=== PATIENT | female | born 1955 | race Caucasian/White ===

== ENCOUNTER 2022-11-29 06:55 | Inpatient (IN) | payer MEDICAID ==
[~2022-11-29] VITALS: Ht 167.6 cm; Wt 76.4 kg
[2022-11-29] MEDS ORDERED: [UNRECOGNIZED DRUG - OTHER] PO (07:07)
[2022-11-29] MEDS ORDERED: htn PO (07:07)
[2022-11-29] MEDS ORDERED: 0.9% SODIUM CHLORIDE 10 ML SYRINGE IVP PRN ×2 (07:15→09:30)
[2022-11-29] MEDS ORDERED: SODIUM CHLORIDE 0.9% 1,000 ML IV ONE ×2 (07:15→14:45)
[2022-11-29] MEDS ORDERED: ACETAMINOPHEN 1000 MG/ISO-OSM 100 ML IV ONE (07:30)
[2022-11-29] MEDS ORDERED: ONDANSETRON HCL 4 MG/2 ML VIAL IVP ONE (07:30)
[2022-11-29 07:39] LABS: COVID AG,FIA SOURCE NASAL SWAB
[2022-11-29 07:44] LABS: APPEARANCE,URINE HAZY (CLEAR); BILIRUBIN,URINE NEGATIVE (NEGATIVE); COLOR,URINE LIGHT YELLOW (YELLOW); GLUCOSE, URINE (UA) TRACE mg/dL (NEGATIVE); KETONES,URINE NEGATIVE (NEGATIVE); LEUKOCYTE ESTERASE ,URINE LARGE (NEGATIVE); NITRATE,URINE POSITIVE (NEGATIVE); OCCULT BLOOD,URINE LARGE (NEGATIVE); PH,URINE 6.5 (5.0-8.0); PROTEIN,URINE 100-200,SEE CONFIRM mg/dL (NEGATIVE); SPECIFIC GRAVITIY, URINE 1.012 (1.003-1.030); UROBILINOGEN,URINE <=1.0 mg/dL (<=1.0)
[2022-11-29 07:50] LABS: BACTERIA,URINE Many /HPF (None Seen); SULFOSALICYLIC ACID,URINE 2+ (Negative); WBC,URINE 51-100 /HPF (0-5)
[2022-11-29 07:51] LABS: RENAL EPITHELIAL CELLS,URINE Rare /LPF (None Seen); SQUAMOUS EPITHELIAL CELL,UR Moderate /LPF (None Seen)
[2022-11-29 07:52] LABS: BASOPHILS % (AUTO) 0.1 % (0.0-2.0); EOSINOPHILS % (AUTO) 0.3 % (1.0-6.0); HEMATOCRIT 36.4 % (36-46); HEMOGLOBIN 12.5 g/dL (12.0-16.0); LYMPHOCYTES # (AUTO) 0.6 K/uL (1.0-4.8); LYMPHOCYTES % (AUTO) 7.7 % (22.0-44.0); MEAN CORPUSCULAR HEMOGLOBIN 28.2 pg (26.0-34.0); MEAN CORPUSCULAR HGB CONC 34.3 G/dL (31.0-37.0); MEAN CORPUSCULAR VOLUME 82 fL (80-100); MONOCYTES # (AUTO) 0.1 K/uL (0.1-1.0); MONOCYTES % (AUTO) 1.1 % (2.0-9.0); NEUTROPHILS # (AUTO) 6.8 K/uL (1.8-7.7); PLATELET COUNT (AUTO) 189 K/uL (150-450); RED BLOOD CELL COUNT(AUTO) 4.43 MIL/uL (4.00-5.20); RED CELL DISTRIBUTION WIDTH 14.1 % (11.5-14.5); WHITE BLOOD COUNT (AUTO) 7.5 K/uL (4.5-11.0)
[2022-11-29 07:56] LABS: NEUTROPHILS % (AUTO) 90.8 % (40.0-70.0); RBC MORPHOLOGY COMMENT NORMAL RBC MORPH
[2022-11-29] MEDS ORDERED: CefTRIAXone 1 GM/DEXTROSE 50 ML IV ONE (08:00)
[2022-11-29] MEDS ORDERED: SODIUM CHLORIDE 0.9% 1,300 ML IV ONE (08:00)
[2022-11-29 08:02] LABS: ANION GAP 14 mmol/L (8-16); CALCIUM, TOTAL 8.8 mg/dL (8.8-10.5); CARBON DIOXIDE 23 mmol/L (22-29); CHLORIDE 102 mmol/L (98-107); CREATININE 1.26 mg/dL (0.60-1.30); GLOMERULAR FILTR. RATE CALC 43 mL/min (>60); GLUCOSE,RANDOM 204 mg/dL (70-110); POTASSIUM 3.9 mmol/L (3.5-5.1); SODIUM SERUM 139 mmol/L (136-145); UREA NITROGEN, BLOOD 19 mg/dL (7-18)
[2022-11-29 08:03] LABS: SARS-COV2 (COVID) ANTIGEN,FIA Negative (Negative)
[2022-11-29 08:04] LABS: INFLUENZA TYPE A NEGATIVE FOR TYPE A (NEGATIVE); INFLUENZA TYPE B NEGATIVE FOR TYPE B (NEGATIVE); INR 1.1 (0.9-1.1); PROTHROMBIN TIME 11.4 SEC (9.4-11.6)
[2022-11-29 08:10] LABS: B-TYPE NATRIURETIC PEPTIDE 26 pg/mL (0-100)
[2022-11-29 08:16] LABS: LACTIC ACID 2.9 mmol/L (0.4-2.0)
[2022-11-29 08:17] LABS: ALANINE AMINOTRANSFERASE 19 U/L (12-78); ALBUMIN 3.4 g/dL (3.4-5.0); ALKALINE PHOSPHATASE 119 U/L (46-116); ASPARTATE AMINOTRANSFERASE 14 U/L (15-37); BILIRUBIN,TOTAL 0.8 mg/dL (0.1-1.0); CREATINE KINASE, TOTAL ONLY 68 U/L (26-192)
[2022-11-29 08:32] LABS: TROPONIN I-HIGH SENSITIVITY 11 ng/L (<51)
[2022-11-29] MEDS ORDERED: ONDANSETRON HCL 4 MG/2 ML VIAL IVP PRN ×2 (09:30→14:45)
[2022-11-29] MEDS ORDERED: ACETAMINOPHEN 325 MG TABLET PO PRN (09:30)
[2022-11-29] MEDS ORDERED: HydrALAZINE HCL 20 MG/ML VIAL IVP ONE (12:45)
[2022-11-29] MEDS ORDERED: ZOLPIDEM TARTRATE 5 MG TABLET PO PRN (14:45)
[2022-11-29] MEDS ORDERED: MAGNESIUM HYDROXIDE SUSPENSION 30 ML UDCUP PO PRN (14:45)
[2022-11-29] MEDS ORDERED: DEXTROSE 50%-WATER 25 GM/50 ML SYRINGE IVP PRN (14:45)
[2022-11-29] MEDS ORDERED: BISACODYL 10 MG RECTAL RECTAL SUPPOSITORY PR PRN (14:45)
[2022-11-29] MEDS ORDERED: HydrALAZINE HCL 20 MG/ML VIAL IVP PRN (14:45)
[2022-11-29 15:27] VITALS: BP 110/65; PULSE 85; RESP 18; TEMP 98.1
[2022-11-29] MEDS: MORPHINE SULFATE 2 MG/ML SYRINGE IVP PRN (17:28)
[2022-11-29] MEDS: HEPARIN SODIUM,PORCINE 5,000 UNITS/ML VIAL SQ SCH (17:28)
[2022-11-29] MEDS: DOCUSATE SODIUM 100 MG CAPSULE PO SCH (19:58)
[2022-11-29] MEDS: ACETAMINOPHEN 325 MG TABLET PO PRN (19:58)
[2022-11-29 20:30] VITALS: BP 129/71; PULSE 105; RESP 20; TEMP 100.3
[2022-11-29] MEDS: INSULIN LISPRO 100 UNITS/ML SQ PRN (21:12)
[2022-11-29 22:01] LABS: GLUCOMETER DEV NAME(LOC) 6N.2B; GLUCOSE,POINT OF CARE 201 MG/DL (70-110)
[2022-11-29 22:06] LABS: GLUCOMETER DEV NAME(LOC) 4E.2; GLUCOSE,POINT OF CARE 187 MG/DL (70-110)
[2022-11-30] MEDS: HEPARIN SODIUM,PORCINE 5,000 UNITS/ML VIAL SQ SCH ×4 (00:15→23:57)
[2022-11-30 00:20] VITALS: TEMP 99
[2022-11-30 05:03] VITALS: BP 116/70; PULSE 90; RESP 20; TEMP 98.8
[2022-11-30] MEDS: HYDROCODONE/ACETAMINOPHEN 5-325 MG TABLET PO PRN ×2 (05:08→20:28)
[2022-11-30 06:53] LABS: LYMPHOCYTES # (AUTO) 1.1 K/uL (1.0-4.8); MONOCYTES # (AUTO) 0.7 K/uL (0.1-1.0); MONOCYTES % (AUTO) 4.1 % (2.0-9.0)
[2022-11-30 07:05] LABS: ALBUMIN 2.4 g/dL (3.4-5.0); BILIRUBIN,TOTAL 0.4 mg/dL (0.1-1.0); CREATININE 1.42 mg/dL (0.60-1.30); POTASSIUM 3.8 mmol/L (3.5-5.1); TOTAL PROTEIN, SERUM 5.6 g/dL (6.4-8.2)
[2022-11-30 07:06] LABS: GLUCOMETER DEV NAME(LOC) 6N.2B; GLUCOSE,POINT OF CARE 147 MG/DL (70-110)
[2022-11-30 07:36] LABS: BASOPHILS % (AUTO) 0.3 % (0.0-2.0); EOSINOPHILS % (AUTO) 0.6 % (1.0-6.0); HEMATOCRIT 28.6 % (36-46); HEMOGLOBIN 9.7 g/dL (12.0-16.0); LYMPHOCYTES % (AUTO) 6.5 % (22.0-44.0); MEAN CORPUSCULAR HEMOGLOBIN 28.3 pg (26.0-34.0); MEAN CORPUSCULAR VOLUME 83 fL (80-100); NEUTROPHILS # (AUTO) 14.4 K/uL (1.8-7.7); PLATELET COUNT (AUTO) 133 K/uL (150-450); RED BLOOD CELL COUNT(AUTO) 3.43 MIL/uL (4.00-5.20); RED CELL DISTRIBUTION WIDTH 14.6 % (11.5-14.5)
[2022-11-30 07:38] LABS: NEUTROPHILS % (AUTO) 88.5 % (40.0-70.0); WHITE BLOOD COUNT (AUTO) 16.2 K/uL (4.5-11.0)
[2022-11-30] MEDS: DOCUSATE SODIUM 100 MG CAPSULE PO SCH ×2 (08:58→20:28)
[2022-11-30] MEDS ORDERED: CefTRIAXone 1 GM/DEXTROSE 50 ML IV SCH (09:00)
[2022-11-30] MEDS: PANTOPRAZOLE SODIUM 40 MG DR TABLET PO SCH (09:06)
[2022-11-30] MEDS: MORPHINE SULFATE 2 MG/ML SYRINGE IVP PRN (11:44)
[2022-11-30] MEDS ORDERED: DEXTROSE 50%-WATER 25 GM/50 ML SYRINGE IVP PRN (12:15)
[2022-11-30] MEDS ORDERED: INSULIN LISPRO 100 UNITS/ML SQ PRN (12:15)
[2022-11-30] MEDS: SODIUM CHLORIDE 0.9% 1,000 ML IV SCH (13:32)
[2022-11-30] MEDS: PIPERACILLIN/TAZO 3.375 GM/D5W 50 ML IV SCH ×2 (13:54→20:33)
[2022-11-30] MEDS ORDERED: IOHEXOL 9 MG/ML 500 ML BOTTLE ONE (13:56)
[2022-11-30 13:57] LABS: GLUCOMETER DEV NAME(LOC) 6S.1B; GLUCOSE,POINT OF CARE 242 MG/DL (70-110)
[2022-11-30 16:20] VITALS: BP 139/74; PULSE 96; RESP 20; TEMP 101.7
[2022-11-30] MEDS: ACETAMINOPHEN 325 MG TABLET PO PRN (16:53)
[2022-11-30] MEDS: INSULIN LISPRO 100 UNITS/ML SQ PRN ×2 (17:29→20:29)
[2022-11-30 20:08] VITALS: BP 129/73; PULSE 84; RESP 18; TEMP 100.1
[2022-11-30 20:11] LABS: GLUCOMETER DEV NAME(LOC) 4E.2; GLUCOSE,POINT OF CARE 144 MG/DL (70-110)
[2022-11-30 22:46] LABS: GLUCOMETER DEV NAME(LOC) 4E.2; GLUCOSE,POINT OF CARE 197 MG/DL (70-110)
[2022-12-01] MEDS: HYDROCODONE/ACETAMINOPHEN 5-325 MG TABLET PO PRN ×4 (00:02→20:34)
[2022-12-01] MEDS: PIPERACILLIN/TAZO 3.375 GM/D5W 50 ML IV SCH ×4 (02:05→20:34)
[2022-12-01 04:14] VITALS: BP 134/80; PULSE 83; RESP 17; TEMP 99.6
[2022-12-01] MEDS: SODIUM CHLORIDE 0.9% 1,000 ML IV SCH ×2 (04:17→16:01)
[2022-12-01] MEDS: INSULIN LISPRO 100 UNITS/ML SQ PRN ×2 (05:50→18:02)
[2022-12-01 06:56] LABS: BASOPHILS % (AUTO) 0.3 % (0.0-2.0); EOSINOPHILS % (AUTO) 1.2 % (1.0-6.0); HEMATOCRIT 26.2 % (36-46); HEMOGLOBIN 8.8 g/dL (12.0-16.0); LYMPHOCYTES % (AUTO) 9.3 % (22.0-44.0); MEAN CORPUSCULAR HEMOGLOBIN 28.2 pg (26.0-34.0); MEAN CORPUSCULAR HGB CONC 33.7 G/dL (31.0-37.0); MEAN CORPUSCULAR VOLUME 84 fL (80-100); MONOCYTES # (AUTO) 0.5 K/uL (0.1-1.0); MONOCYTES % (AUTO) 4.7 % (2.0-9.0); NEUTROPHILS # (AUTO) 9.5 K/uL (1.8-7.7); NEUTROPHILS % (AUTO) 84.5 % (40.0-70.0); PLATELET COUNT (AUTO) 128 K/uL (150-450); RED BLOOD CELL COUNT(AUTO) 3.13 MIL/uL (4.00-5.20); RED CELL DISTRIBUTION WIDTH 14.4 % (11.5-14.5); WHITE BLOOD COUNT (AUTO) 11.2 K/uL (4.5-11.0)
[2022-12-01 07:06] LABS: CALCIUM, TOTAL 8.1 mg/dL (8.8-10.5); CREATININE 1.28 mg/dL (0.60-1.30); POTASSIUM 3.8 mmol/L (3.5-5.1)
[2022-12-01 07:46] LABS: GLUCOMETER DEV NAME(LOC) 6N.2B; GLUCOSE,POINT OF CARE 141 MG/DL (70-110)
[2022-12-01] MEDS: PANTOPRAZOLE SODIUM 40 MG DR TABLET PO SCH (08:02)
[2022-12-01] MEDS: HEPARIN SODIUM,PORCINE 5,000 UNITS/ML VIAL SQ SCH ×3 (08:02→23:28)
[2022-12-01] MEDS: DOCUSATE SODIUM 100 MG CAPSULE PO SCH ×2 (08:02→20:36)
[2022-12-01 08:33] VITALS: BP 141/76; PULSE 78; RESP 20; TEMP 99.1
[2022-12-01 14:16] LABS: GLUCOMETER DEV NAME(LOC) 4E.2; GLUCOSE,POINT OF CARE 132 MG/DL (70-110)
[2022-12-01] MEDS: MORPHINE SULFATE 2 MG/ML SYRINGE IVP PRN (18:07)
[2022-12-01 18:08] VITALS: BP 138/79; PULSE 77; RESP 20; TEMP 98.4
[2022-12-01 19:36] LABS: GLUCOMETER DEV NAME(LOC) 4E.2; GLUCOSE,POINT OF CARE 172 MG/DL (70-110)
[2022-12-01 20:10] VITALS: BP 166/90; PULSE 84; RESP 20; TEMP 99.2
[2022-12-01 23:36] LABS: GLUCOMETER DEV NAME(LOC) 6S.1B; GLUCOSE,POINT OF CARE 123 MG/DL (70-110)
[2022-12-02] VITALS (8 sets, daily range): BP systolic 145–192; BP diastolic 80–95; PULSE 70–78; RESP 18–20; TEMP 98.2–98.8
[2022-12-02] MEDS: PIPERACILLIN/TAZO 3.375 GM/D5W 50 ML IV SCH ×4 (01:19→20:47)
[2022-12-02] MEDS: INSULIN LISPRO 100 UNITS/ML SQ PRN ×3 (05:55→17:54)
[2022-12-02] MEDS: HYDROCODONE/ACETAMINOPHEN 5-325 MG TABLET PO PRN ×2 (05:59→16:33)
[2022-12-02 07:27] LABS: BASOPHILS % (AUTO) 0.5 % (0.0-2.0); EOSINOPHILS % (AUTO) 1.6 % (1.0-6.0); HEMATOCRIT 28.1 % (36-46); HEMOGLOBIN 9.7 g/dL (12.0-16.0); LYMPHOCYTES # (AUTO) 1.2 K/uL (1.0-4.8); LYMPHOCYTES % (AUTO) 15.1 % (22.0-44.0); MEAN CORPUSCULAR HEMOGLOBIN 28.4 pg (26.0-34.0); MEAN CORPUSCULAR HGB CONC 34.4 G/dL (31.0-37.0); MEAN CORPUSCULAR VOLUME 83 fL (80-100); MONOCYTES # (AUTO) 0.5 K/uL (0.1-1.0); NEUTROPHILS # (AUTO) 6.2 K/uL (1.8-7.7); NEUTROPHILS % (AUTO) 76.8 % (40.0-70.0); PLATELET COUNT (AUTO) 158 K/uL (150-450)
[2022-12-02 07:40] LABS: CALCIUM, TOTAL 8.8 mg/dL (8.8-10.5); CREATININE 1.14 mg/dL (0.60-1.30); POTASSIUM 3.8 mmol/L (3.5-5.1)
[2022-12-02] MEDS: PANTOPRAZOLE SODIUM 40 MG DR TABLET PO SCH (08:01)
[2022-12-02] MEDS: HEPARIN SODIUM,PORCINE 5,000 UNITS/ML VIAL SQ SCH ×2 (08:01→15:47)
[2022-12-02] MEDS: DOCUSATE SODIUM 100 MG CAPSULE PO SCH ×2 (08:01→21:00)
[2022-12-02] MEDS: SODIUM CHLORIDE 0.9% 1,000 ML IV SCH ×2 (08:01→17:55)
[2022-12-02] MEDS ORDERED: DiphenhydrAMINE HCL 25 MG CAPSULE PO PRN (10:00)
[2022-12-02] MEDS ORDERED: PredniSONE 20 MG TABLET PO SCH (10:00)
[2022-12-02 15:06] LABS: GLUCOMETER DEV NAME(LOC) 4E.2; GLUCOSE,POINT OF CARE 163 MG/DL (70-110)
[2022-12-02 15:06] LABS: GLUCOMETER DEV NAME(LOC) 6N.2B; GLUCOSE,POINT OF CARE 147 MG/DL (70-110)
[2022-12-02 18:21] LABS: GLUCOMETER DEV NAME(LOC) 4E.2; GLUCOSE,POINT OF CARE 204 MG/DL (70-110)
[2022-12-02] MEDS: METOPROLOL SUCCINATE 25 MG ER TABLET PO SCH (22:19)
[2022-12-02] MEDS: AmLODIPine BESYLATE 10 MG TABLET PO SCH (22:19)
[2022-12-02] MEDS: LOSARTAN POTASSIUM 50 MG TABLET PO SCH (22:21)
[2022-12-03 01:16] LABS: GLUCOMETER DEV NAME(LOC) 6N.2B; GLUCOSE,POINT OF CARE 261 MG/DL (70-110)
[2022-12-03] MEDS: PIPERACILLIN/TAZO 3.375 GM/D5W 50 ML IV SCH ×3 (02:01→14:18)
[2022-12-03] MEDS: HEPARIN SODIUM,PORCINE 5,000 UNITS/ML VIAL SQ SCH ×4 (02:08→23:59)
[2022-12-03 03:47] VITALS: BP 157/75; PULSE 65; RESP 20; TEMP 98.8
[2022-12-03 06:46] LABS: GLUCOMETER DEV NAME(LOC) 6N.2B; GLUCOSE,POINT OF CARE 128 MG/DL (70-110)
[2022-12-03] MEDS: SODIUM CHLORIDE 0.9% 1,000 ML IV SCH ×2 (08:39→23:17)
[2022-12-03] MEDS: AmLODIPine BESYLATE 10 MG TABLET PO SCH (08:40)
[2022-12-03] MEDS: DOCUSATE SODIUM 100 MG CAPSULE PO SCH ×2 (08:41→20:16)
[2022-12-03] MEDS: LOSARTAN POTASSIUM 50 MG TABLET PO SCH (08:41)
[2022-12-03] MEDS: PANTOPRAZOLE SODIUM 40 MG DR TABLET PO SCH (08:41)
[2022-12-03] MEDS: METOPROLOL SUCCINATE 25 MG ER TABLET PO SCH (08:44)
[2022-12-03 09:37] VITALS: BP 180/99; PULSE 68; RESP 18; TEMP 98.5
[2022-12-03] MEDS: INSULIN LISPRO 100 UNITS/ML SQ PRN ×3 (13:10→20:20)
[2022-12-03] MEDS ORDERED: CARVEDILOL 3.125 MG TABLET PO SCH (13:45)
[2022-12-03] MEDS ORDERED: METOPROLOL SUCCINATE 25 MG ER TABLET PO ONE (13:45)
[2022-12-03 16:33] VITALS: BP 162/90; PULSE 73; RESP 20; TEMP 100
[2022-12-03 16:43] VITALS: TEMP 99.4
[2022-12-03] MEDS: ACETAMINOPHEN 325 MG TABLET PO PRN (16:45)
[2022-12-03 17:12] LABS: GLUCOMETER DEV NAME(LOC) 4E.2; GLUCOSE,POINT OF CARE 218 MG/DL (70-110)
[2022-12-03 19:25] VITALS: BP 148/78; PULSE 65; RESP 20; TEMP 98.9
[2022-12-03 19:56] LABS: GLUCOMETER DEV NAME(LOC) 4E.2; GLUCOSE,POINT OF CARE 170 MG/DL (70-110)
[2022-12-03] MEDS: CIPROFLOXACIN HCL 500 MG TABLET PO SCH (20:16)
[2022-12-03 23:31] LABS: GLUCOMETER DEV NAME(LOC) 4E.2; GLUCOSE,POINT OF CARE 197 MG/DL (70-110)
[2022-12-04 03:45] VITALS: BP 140/80; PULSE 68; RESP 20; TEMP 99.6
[2022-12-04] MEDS: ACETAMINOPHEN 325 MG TABLET PO PRN (04:21)
[2022-12-04] MEDS: INSULIN LISPRO 100 UNITS/ML SQ PRN (05:44)
[2022-12-04 06:36] LABS: GLUCOMETER DEV NAME(LOC) 6N.2B; GLUCOSE,POINT OF CARE 146 MG/DL (70-110)
[2022-12-04] MEDS: HEPARIN SODIUM,PORCINE 5,000 UNITS/ML VIAL SQ SCH (08:30)
[2022-12-04] MEDS: AmLODIPine BESYLATE 10 MG TABLET PO SCH (08:31)
[2022-12-04] MEDS: DOCUSATE SODIUM 100 MG CAPSULE PO SCH (08:32)
[2022-12-04] MEDS: CIPROFLOXACIN HCL 500 MG TABLET PO SCH (08:32)
[2022-12-04] MEDS: LOSARTAN POTASSIUM 50 MG TABLET PO SCH (08:33)
[2022-12-04] MEDS ORDERED: METOPROLOL SUCCINATE 50 MG ER TABLET PO SCH (09:00)
[2022-12-04 09:06] VITALS: BP 160/82; PULSE 78; RESP 19; TEMP 98.5
[2022-12-04] MEDS: PANTOPRAZOLE SODIUM 40 MG DR TABLET PO SCH (09:07)
[2022-12-04] MEDS ORDERED: AMLO-258 PO (11:13)
[2022-12-04] MEDS ORDERED: METO-391 PO (11:13)
[2022-12-04] MEDS ORDERED: LOSA-382 PO (11:13)
[2022-12-04] MEDS ORDERED: CIPR500T10 PO (11:13)
[2022-12-04 13:26] LABS: GLUCOMETER DEV NAME(LOC) 4E.2; GLUCOSE,POINT OF CARE 175 MG/DL (70-110)
== END 2022-12-04 12:55 | disposition home or self-care (01) | DRG 720 ==
LOC: EMS 07:04 → EDBD 07:04 → AHU 09:20 → 6S 14:01
PROVIDERS: ADMIT Internal Medicine; ATTEND Internal Medicine
DX: A41.50 Gram-negative sepsis, unspecified (principal); N12 Tubulo-interstitial nephritis, not specified as acute or chronic; B96.20 Unspecified Escherichia coli [E. coli] as the cause of diseases classified elsewhere; E11.65 Type 2 diabetes mellitus with hyperglycemia; I10 Essential (primary) hypertension; Z20.822 Contact with and (suspected) exposure to COVID-19
CPT/HCPCS: 71045; 74177; 76770; 80048; 80053; 81001; 81002; 82550; 82962; 83605; 83690; 83880; 84145; 84484; 85025; 85610; 87040; 87077; 87086; 87186; 87205; 87804; 93005; 99291; J0131; J0696; J1644; J2270; J2405; J2543; J7030; Q9967; 36415-L1; 36415-TC